=== PATIENT | male | born 1985 | race Two or more races ===

== ENCOUNTER 2018-09-06 08:57 | Emergency (ER) | payer SELFPAY ==
[~2018-09-06] VITALS: Ht 170.2 cm; Wt 83.9 kg
[2018-09-06 09:02] VITALS: BP 122/68
--- NOTE | 2018-09-06 09:16 | PHYS DOC ---
Past Medical History Past Medical History: No Pertinent History Past Surgical History: No Surgical History Alcohol Use: None Drug Use: None Adult General Chief Complaint Chief Complaint: EYE PROBLEMS [facility] Patient is a 33 year old male who presents with redness to the upper quadrant of his eye between noon and 3:00. He denies drainage or discharge. He denies injury to the eye. He denies any changes in vision. He does not remember having any hard sneezing or coughing. He denies any heavy lifting. This information was obtained using the rail filler phone. Review of Systems Review of Systems Constitutional: Denies fever or chills [] Eyes: See history of present illness HENT: Denies nasal congestion or sore throat [] Respiratory: Denies cough or shortness of breath [] Cardiovascular: No additional information not addressed in HPI [] GI: Denies abdominal pain, nausea, vomiting, bloody stools or diarrhea [] : Denies dysuria or hematuria [] Musculoskeletal: Denies back pain or joint pain [] Integument: Denies rash or skin lesions [] Neurologic: Denies headache, focal weakness or sensory changes [] Endocrine: Denies polyuria or polydipsia [] All other systems were reviewed and found to be within normal limits, except as documented in this note. Allergies Allergies Allergies Coded Allergies Type Severity Reaction Last Updated Verified No Known Drug Allergies 01/15/15 No Physical Exam Physical Exam Constitutional: Well developed, well nourished, no acute distress, non-toxic appearance. [] HENT: Normocephalic, atraumatic, bilateral external ears normal, oropharynx moist, no oral exudates, nose normal. [] Eyes: PERRLA, EOMI, subconjunctival hemorrhage noted to the left eye, no discharge. [] Neck: Normal range of motion, no tenderness, supple, no stridor. [] Cardiovascular:Heart rate regular rhythm, no murmur [] Lungs & Thorax: Bilateral breath sounds clear to auscultation [] Neurologic: Alert and oriented X 3, normal motor function, normal sensory function, no focal deficits noted. [] Psychologic: Affect normal, judgement normal, mood normal. [] Current Patient Data Vital Signs Vital Signs Date Time Temp Pulse Resp B/P (MAP) Pulse Ox O2 Delivery O2 Flow Rate FiO2 09/06/18 09:02 98.0 74 14 122/68 (86) 98 Room Air 98.0 EKG EKG [] Radiology/Procedures Radiology/Procedures [] Course & Med Decision Making Course & Med Decision Making Pertinent Labs and Imaging studies reviewed. (See chart for details) [] Dragon Disclaimer Dragon Disclaimer This electronic medical record was generated, in whole or in part, using a voice recognition dictation system. Departure Departure Impression: Primary Impression: Subconjunctival hemorrhage of left eye Disposition: HOME, SELF-CARE Condition: STABLE Referrals: NO PCP (PCP) SOTO CHACON MD Patient Instructions: Subconjunctival Hemorrhage Additional Instructions: Follow up with ophthalmology or primary care as needed or return to the emergency department if worsening. ANJALI VAZQUEZ APRN Sep 06, 2018 09:16
== END 2018-09-06 09:27 | disposition home or self-care (01) ==
LOC: ER 08:57
DX: H11.32 Conjunctival hemorrhage, left eye (principal)
CPT/HCPCS: 99281